=== PATIENT | female | born 1980 | race Caucasian/White ===

== ENCOUNTER 2019-04-30 10:00 | Inpatient (IN) | payer BC ==
[2019-04-20 14:24] VITALS: BMI 27.1
[2019-04-30] MEDS ORDERED: BUPIVACAINE LIPOSOME/PF (EXPAREL) 266 MG/20 ML VIAL ONE (11:35)
[2019-04-30] MEDS ORDERED: MIDAZOLAM HCL 2 MG/2 ML SINGLE DOSE VIAL ONE ×3 (11:35→15:23)
[2019-04-30] MEDS ORDERED: EPINEPHrine/PF 1 MG/1 ML (1:1,000) AMPULE ONE (11:59)
[2019-04-30] MEDS ORDERED: BUPIVACAINE HCL/PF 0.5% (5 MG/ML) 30 ML VIAL IJ ONE (11:59)
[2019-04-30] MEDS ORDERED: VANCOMYCIN 1,000 MG VIAL (RESTRICTED TO ID ONLY) ONE (12:10)
--- NOTE | 2019-04-30 12:29 | HP ---
Admitting History and Physical - Admission Chief Complaint: left hip pain History Source: Patient Limitations to Obtaining History: No Limitations - Past Medical History ...LMP: 04/04/19 ...: No - Smoking History Smoking history: Never smoked - Alcohol/Substance Use Hx Alcohol Use: No Home Medications - Allergies Allergies/Adverse Reactions: Allergies Allergy/AdvReac Type Severity Reaction Status Date / Time amoxicillin AdvReac Vomiting Verified 04/20/19 13:13 - Home Medications Home Medications: Ambulatory Orders NK [No Known Home Medication] 04/20/19 Review of Systems - Review of Systems Constitutional: reports: No Symptoms Eyes: reports: No Symptoms HENT: reports: No Symptoms Neck: reports: No Symptoms Cardiovascular: reports: No Symptoms Respiratory: reports: No Symptoms Gastrointestinal: reports: No Symptoms Genitourinary: reports: No Symptoms Musculoskeletal: reports: Joint Pain Integumentary: reports: No Symptoms Neurological: reports: No Symptoms Endocrine: reports: No Symptoms Psychiatric: reports: No Symptoms Physical Examination Vital Signs: Vital Signs Temperature 98.3 F 04/30/19 10:48 Pulse Rate 78 04/30/19 10:48 Respiratory Rate 18 04/30/19 10:48 Blood Pressure 111/78 04/30/19 10:48 O2 Sat by Pulse Oximetry (%) 100 04/30/19 10:48 Constitutional: Yes: Well Nourished, No Distress, Anxious Eyes: Yes: WNL HENT: Yes: WNL Neck: Yes: WNL Cardiovascular: Yes: WNL Respiratory: Yes: WNL Gastrointestinal: Yes: WNL Renal/: Yes: WNL Musculoskeletal: Yes: Joint Stiffness Extremities: Yes: WNL Edema: No Peripheral Pulses WNL: Yes Integumentary: Yes: WNL Neurological: Yes: WNL ...Motor Strength: WNL Psychiatric: Yes: WNL Assessment/Plan -39 yo lady with left hip pain. for OR today with Dr Hussain Savage. -NPO -Pt is medically cleared with moderate CV risk for OR -will follow post-op assessment and plan discussed with pt and family at bedside
[2019-04-30] MEDS ORDERED: TRANEXAMIC ACID 1000 MG/10 ML VIAL IVPUSH ONE (12:50)
[2019-04-30] MEDS ORDERED: VANCOMYCIN 1,000 MG in DEXTROSE 5%-WATER - 250 ML IVPB ONE (12:50)
[2019-04-30] MEDS ORDERED: CEFAZOLIN 1 GM/D5W 1 GRAM/50 ML BAG IVPB ONE (12:50)
[2019-04-30] MEDS ORDERED: DEXAMETHASONE SOD PHOSPHATE 4 MG/1 ML VIAL ONE (13:23)
[2019-04-30] MEDS ORDERED: ceFAZolin SODIUM 1 GM VIAL ONE ×2 (13:23→15:34)
[2019-04-30] MEDS ORDERED: ONDANSETRON 4 MG/2 ML VIAL ONE (13:23)
[2019-04-30] MEDS ORDERED: PROPOFOL 20 ML ONE ×4 (13:23→15:31)
[2019-04-30] MEDS ORDERED: SUCCINYLCHOLINE CHLORIDE 200 MG/10 ML VIAL ONE (13:24)
[2019-04-30] MEDS ORDERED: TRANEXAMIC ACID 1000 MG/10 ML VIAL ONE (13:24)
[2019-04-30] MEDS ORDERED: PHENYLEPHRINE HCL 10 MG/1 ML SINGLE DOSE VIAL ONE (13:50)
[2019-04-30] MEDS ORDERED: BENZOIN/ALOE VERA/STORAX/TOLU 58 ML BOTTLE ONE (15:50)
[2019-04-30] MEDS ORDERED: MAGNESIUM HYDROX 2400MG/30ML ORAL SUSPENSION 30 ML CUP PO PRN (16:02)
[2019-04-30] MEDS ORDERED: MAG HYDROX/AL HYDROX/SIMETH 30 ML UNIT-DOSE CUP PO PRN (16:02)
[2019-04-30] MEDS ORDERED: ONDANSETRON 4 MG/2 ML VIAL IVPUSH PRN ×2 (16:02→16:43)
[2019-04-30] MEDS ORDERED: LACTATED RINGERS SOLUTION 1,000 ML IV SCH (16:15)
[2019-04-30] MEDS ORDERED: PROMETHAZINE HCL 25 MG/1 ML VIAL IVPUSH PRN (16:43)
--- NOTE | 2019-04-30 16:53 | PN ---
Progress Note (short form) - Note Progress Note: 39F s/p LEFT total hip replacement POD #0. -Pain control: per anaesthesia team. -DVT PPx: -Chemical: ASA 81mg PO BID x 6 weeks. -Mechanical: ANGIE's, SCD's. -Incentive spirometry q15 min. -PT/OT/Rehab, OOB. -WBAT LLE. -Post-op Ancef x 2 doses. -f/u post-op TOV: 8 hours max. -f/u AM labs. -Diet as tolerated. -Care per medical hospitalist team. -Discharge planning: f/u [facility] [place] [facility] 05/06/2019; call for appointment . -Will follow. Hussain Savage MD (Orthopaedic Surgery).
--- NOTE | 2019-04-30 16:55 | OP ---
Operative Note - Note: Operative Date: 04/30/19 Pre-Operative Diagnosis: Congenital dysplasia left hip Operation: Left total hip replacement Implants: Lisette. Cup - Trident II-Tritanium, 50mm multi-hole. Poly - 32mm, neutral. Stem - Accolade II, #0, 127 deg NSA (high offset). Head - 32mm diamater, standard length Biolox/Delta Ceramic Post-Operative Diagnosis: Same as Pre-op Surgeon: Hussain Savage Offc Spec: Naren Savage Anesthesiologist/RN CARE TRANSITION: Rah Amezquita Anesthesia: Spinal Specimens Removed: Left femoral head Estimated Blood Loss (mls): 150 Fluid Volume Replaced (mls): 1,100 (Crystalloid)
[2019-04-30] MEDS: ACETAMINOPHEN 325 MG TABLET (FP) PO SCH ×2 (17:20→23:35)
[2019-04-30] MEDS ORDERED: oxyCODONE HCL 5 MG TABLET ONE (17:20)
[2019-04-30] MEDS ORDERED: ACETAMINOPHEN 325 MG TABLET (FP) ONE (17:20)
[2019-04-30] MEDS: oxyCODONE HCL 5 MG TABLET PO PRN ×2 (17:22→20:42)
[2019-04-30] MEDS: SENNOSIDES/DOCUSATE COMBO (SENNA PLUS) TABLET (UD) PO SCH (21:35)
[2019-04-30] MEDS: oxyCODONE HCL 10 MG SUSTAINED ACTING TABLET PO SCH (21:50)
[2019-04-30] MEDS: ASPIRIN 81 MG CHEWABLE TABLETS PO SCH (21:52)
[2019-04-30] MEDS ORDERED: ASPIRIN 325 MG TABLET PO SCH (22:00)
[2019-04-30] MEDS: CEFAZOLIN 1 GM/D5W 1 GM/50 ML BAG IVPB SCH (23:37)
[2019-05-01] MEDS: oxyCODONE HCL 5 MG TABLET PO PRN ×3 (01:48→21:35)
[2019-05-01] MEDS: ACETAMINOPHEN 325 MG TABLET (FP) PO SCH ×4 (06:27→23:50)
[2019-05-01] MEDS: CEFAZOLIN 1 GM/D5W 1 GM/50 ML BAG IVPB SCH (07:03)
[2019-05-01 08:40] LABS: CALCIUM 8.7 mg/dl (8.5-10); CREATININE 0.5 mg/dl (0.55-1.3); HEMATOCRIT 32.7 % (32.4-45.2); HEMOGLOBIN 10.8 GM/dl (10.7-15.3); MCH 29.4 pg (25.7-33.7); MEAN CELL VOLUME 89.2 fl (80-96); MEAN PLT VOLUME 9.4 fl (7.5-11.1); PLATELET COUNT 213 K/MM3 (134-434); POTASSIUM 3.7 mmol/L (3.5-5.1); RBC 3.67 M/mm3 (3.60-5.2); RDW 12.7 % (11.6-15.6); WHITE BLOOD COUNT 8.2 K/mm3 (4.0-10.8)
[2019-05-01] MEDS: ASPIRIN 81 MG CHEWABLE TABLETS PO SCH ×2 (10:51→21:35)
[2019-05-01] MEDS: PANTOPRAZOLE 40 MG TABLET (FP) PO SCH (10:51)
[2019-05-01] MEDS: oxyCODONE HCL 10 MG SUSTAINED ACTING TABLET PO SCH ×4 (10:51→21:35)
[2019-05-01] MEDS: SENNOSIDES/DOCUSATE COMBO (SENNA PLUS) TABLET (UD) PO SCH ×2 (10:52→21:34)
--- NOTE | 2019-05-01 12:19 | PN ---
Progress Note, Physician Chief Complaint: left hip tenderness - Current Medication List Current Medications: Active Medications Acetaminophen (Tylenol -) 650 mg PO Q6H [facility] Stop: 05/03/19 17:59 Last Admin: 05/01/19 11:34 Dose: 650 mg Al Hydroxide/Mg Hydroxide (Mylanta Oral Suspension -) 30 ml PO Q4H PRN PRN Reason: DYSPEPSIA Aspirin (Asa -) 81 mg PO BID [facility] Last Admin: 05/01/19 10:51 Dose: 81 mg Fentanyl (Sublimaze Injection -) 50 mcg IVPUSH Q5M PRN PRN Reason: PAIN-PACU ORDER X 4 DOSES ONLY Magnesium Hydroxide (Milk Of Magnesia -) 30 ml PO PRN PRN PRN Reason: CONSTIPATION Ondansetron HCl (Zofran Injection) 4 mg IVPUSH Q6H PRN PRN Reason: NAUSEA Ondansetron HCl (Zofran Injection) 4 mg IVPUSH Q6H PRN PRN Reason: NAUSEA AND/OR VOMITING Oxycodone HCl (Roxicodone -) 5 mg PO Q3H PRN PRN Reason: PAIN LEVEL 1-5 Last Admin: 04/30/19 17:22 Dose: 5 mg Oxycodone HCl (Roxicodone -) 10 mg PO Q3H PRN PRN Reason: PAIN LEVEL 6-10 Last Admin: 05/01/19 01:48 Dose: 10 mg Oxycodone HCl (Oxycontin -) 10 mg PO BID [facility] Stop: 05/03/19 16:43 Last Admin: 05/01/19 11:33 Dose: 10 mg Pantoprazole Sodium (Protonix -) 40 mg PO DAILY [facility] Last Admin: 05/01/19 10:51 Dose: 40 mg Promethazine HCl (Phenergan Injection -) 12.5 mg IVPUSH Q6H PRN PRN Reason: NAUSEA-FOR RESCUE AFTER 15 MIN Senna/Docusate Sodium (Pericolace -) 2 tablet PO BID [facility] Last Admin: 05/01/19 10:52 Dose: 2 tablet - Objective Vital Signs: Vital Signs Temperature 98.6 F 05/01/19 05:00 Pulse Rate 81 05/01/19 11:48 Respiratory Rate 17 05/01/19 11:48 Blood Pressure 111/63 05/01/19 11:48 O2 Sat by Pulse Oximetry (%) 100 05/01/19 10:00 Constitutional: Yes: Well Nourished, No Distress, Calm Eyes: Yes: WNL HENT: Yes: WNL Neck: Yes: WNL Cardiovascular: Yes: WNL Respiratory: Yes: WNL Gastrointestinal: Yes: WNL Genitourinary: Yes: WNL Musculoskeletal: Yes: Joint Stiffness Extremities: Yes: WNL Edema: No Peripheral Pulses WNL: Yes Integumentary: Yes: WNL Wound/Incision: Yes: Clean/Dry, Well Approximated, Dressing Dry and Intact Neurological: Yes: WNL ...Motor Strength: WNL Psychiatric: Yes: WNL Labs: CBC, BMP 05/01/19 07:35 05/01/19 07:35 Assessment/Plan -39 yo lady with left hip pain. S/P total left hip replacement POD #1. no complications. cont pain management. incentive spirometry. -fluids started for hypotension. responding well. pain meds may be contributing. pre-renal azotemia likely a factor as well. will monitor. -cont stool sofeteners for opiod induced constipation prevention. assessment and plan discussed with pt and family at bedside plan discussed with Dr Howard Savage hopefully will DC home tomorrow labs and meds reviewed. phone calls answered throughout the day. 40 min
[2019-05-02] MEDS: ACETAMINOPHEN 325 MG TABLET (FP) PO SCH ×3 (06:56→17:20)
[2019-05-02 09:21] LABS: HEMATOCRIT 31.6 % (32.4-45.2); HEMOGLOBIN 10.4 GM/dl (10.7-15.3); MCH 29.8 pg (25.7-33.7); MCHC 33.1 g/dl (32.0-36.0); MEAN CELL VOLUME 90.1 fl (80-96); MEAN PLT VOLUME 9.8 fl (7.5-11.1); PLATELET COUNT 180 K/MM3 (134-434); RBC 3.51 M/mm3 (3.60-5.2); RDW 12.7 % (11.6-15.6); WHITE BLOOD COUNT 7.7 K/mm3 (4.0-10.8)
[2019-05-02] MEDS: oxyCODONE HCL 10 MG SUSTAINED ACTING TABLET PO SCH ×2 (09:31→21:41)
[2019-05-02] MEDS: ASPIRIN 81 MG CHEWABLE TABLETS PO SCH ×2 (09:31→21:41)
[2019-05-02] MEDS: PANTOPRAZOLE 40 MG TABLET (FP) PO SCH (09:31)
[2019-05-02] MEDS: SENNOSIDES/DOCUSATE COMBO (SENNA PLUS) TABLET (UD) PO SCH ×2 (09:32→21:40)
--- NOTE | 2019-05-02 11:40 | PN ---
Progress Note, Physician Chief Complaint: left hip tenderness - Current Medication List Current Medications: Active Medications Acetaminophen (Tylenol -) 650 mg PO Q6H [facility] Stop: 05/03/19 17:59 Last Admin: 05/02/19 06:56 Dose: 650 mg Al Hydroxide/Mg Hydroxide (Mylanta Oral Suspension -) 30 ml PO Q4H PRN PRN Reason: DYSPEPSIA Aspirin (Asa -) 81 mg PO BID [facility] Last Admin: 05/02/19 09:31 Dose: 81 mg Fentanyl (Sublimaze Injection -) 50 mcg IVPUSH Q5M PRN PRN Reason: PAIN-PACU ORDER X 4 DOSES ONLY Sodium Chloride (Normal Saline -) 1,000 mls @ 100 mls/hr IV [facility] Magnesium Hydroxide (Milk Of Magnesia -) 30 ml PO PRN PRN PRN Reason: CONSTIPATION Ondansetron HCl (Zofran Injection) 4 mg IVPUSH Q6H PRN PRN Reason: NAUSEA Ondansetron HCl (Zofran Injection) 4 mg IVPUSH Q6H PRN PRN Reason: NAUSEA AND/OR VOMITING Oxycodone HCl (Roxicodone -) 5 mg PO Q3H PRN PRN Reason: PAIN LEVEL 1-5 Last Admin: 04/30/19 17:22 Dose: 5 mg Oxycodone HCl (Roxicodone -) 10 mg PO Q3H PRN PRN Reason: PAIN LEVEL 6-10 Last Admin: 05/01/19 21:35 Dose: 10 mg Oxycodone HCl (Oxycontin -) 10 mg PO BID [facility] Stop: 05/03/19 16:43 Last Admin: 05/02/19 09:31 Dose: 10 mg Pantoprazole Sodium (Protonix -) 40 mg PO DAILY [facility] Last Admin: 05/02/19 09:31 Dose: 40 mg Promethazine HCl (Phenergan Injection -) 12.5 mg IVPUSH Q6H PRN PRN Reason: NAUSEA-FOR RESCUE AFTER 15 MIN Senna/Docusate Sodium (Pericolace -) 2 tablet PO BID [facility] Last Admin: 05/02/19 09:32 Dose: 2 tablet - Objective Vital Signs: Vital Signs Temperature 98.6 F 05/02/19 06:00 Pulse Rate 90 05/02/19 06:00 Respiratory Rate 18 05/02/19 09:00 Blood Pressure 91/55 L 05/02/19 06:00 O2 Sat by Pulse Oximetry (%) 100 05/02/19 09:00 Constitutional: Yes: Well Nourished, No Distress Eyes: Yes: WNL HENT: Yes: WNL Neck: Yes: WNL Cardiovascular: Yes: WNL Respiratory: Yes: WNL Gastrointestinal: Yes: WNL Genitourinary: Yes: WNL Musculoskeletal: Yes: Joint Stiffness Extremities: Yes: WNL Peripheral Pulses WNL: Yes Integumentary: Yes: WNL Wound/Incision: Yes: Clean/Dry Neurological: Yes: WNL ...Motor Strength: WNL Psychiatric: Yes: WNL Labs: CBC, BMP 05/02/19 06:30 05/01/19 07:35 Assessment/Plan -39 yo lady with left hip pain. S/P total left hip replacement POD #2. no complications. cont pain management. incentive spirometry. -fluids started for hypotension. pain meds may be contributing. pre-renal azotemia likely a factor as well. IV fluids started. Pt says she was never told she has low BP. not ready to cut back on pain meds -cont stool sofeteners for opiod induced constipation prevention. assessment and plan discussed with pt and family at bedside hopefully will DC home tomorrow labs and meds reviewed. phone calls answered throughout the day. 40 min
[2019-05-02] MEDS ORDERED: SODIUM CHLORIDE 1,000 ML IV SCH (11:45)
[2019-05-03] MEDS: ACETAMINOPHEN 325 MG TABLET (FP) PO SCH ×2 (00:50→05:51)
[2019-05-03 02:07] VITALS: TEMP 99
[2019-05-03 06:48] VITALS: BP 112/62; PULSE 93
--- NOTE | 2019-05-03 08:53 | OP ---
Date of Operation: 04/30/2019 Surgeon: Hussain Savage M.D. [employer]: Naren Savage M.D., Darya Storm P.A.-C. Pre-Operative Diagnosis: 1. Developmental dysplasia left hip; 2. Osteoarthritis left hip. Post-Operative Diagnosis: 1. Developmental dysplasia left hip; 2. Osteoarthritis left hip. Surgical Procedure: Left total hip replacement via Direct Suprior approach. Findings: 1. Deficient anterior wall left acetabulum; 2. Deficient anterior column left pelvis. Anaesthesia: Spinal, block. Position: Right lateral decubitus. Incision: Direct superior. Estimated Blood Loss: 150cc. Intravenous Fluid: 1.1L crystalloid. Specimens: Right femoral head. Drains: None. Complications: None. Urine output: None. Bacteriology: None. Transfusions: None. Closure: #1 Vicryl, 3-0 Biosyn. Indications: The patient was indicated for a left total hip replacement in order to facilitate improved motion and mobilization, and to prevent the complications associated with a sedentary lifestyle. The patient was identified in the holding area by her armband. A long discussion was held with the patient (in the presence of the patients ) regarding the risks, benefits and alternatives of the above named procedure. Risks include but are not limited to: pain, bleeding, infection, damage to surrounding structures (including nerves, blood vessels, skin, ligaments, tendons and bone), wound complications, failure of hardware/implants/reduction, limb length discrepancy, need for further surgery, blood clots, myocardial infarction, pulmonary embolism, cerebrovascular insult, anaesthesia complications, compartment syndrome, limb loss, limp, loss of function, and . Benefits as mentioned above. Alternatives include no surgery. All questions were answered. The patient understood and agreed to the procedure. Informed consent was obtained, witnessed and verified. The patients correct operative limb - that is the left lower extremity - was marked, and the patient was taken to the operating room after being seen by the anesthesia and nursing staff. Procedure: The patient was brought into the operating room, placed on the OR table and secured with a safety strap. Consent and the operative site were again verified with the patient and nursing and anaesthesia staff. Anaesthesia, IV antibiotics, and TXA were then administered without complication. A time out was done, led by me the attending surgeon. A pre-operative orthpaedic exam revealed a leg length discrepancy with the left lower extremity being 1.5-2cm shorter than the right lower extremity. The patient was gently turned into the right lateral decubitus position. An axillary roll was placed. A Stulberg hip positioner with well-padded bolsters was used to secure the patient in the lateral decubitus position. The down arm was placed on a well-padded arm board. The up arm was brought across the patients body and placed on 2 pillows. Foam egg crates were placed under the down knee and ankle, and bony prominences were well padded. The operative site was then prepped and draped in the standard sterile fashion. Time out was again done and the case began. Operation: A standard Direct Superior surgical approach was utilized to access the hip joint. With a #10 blade, a skin incision was taken from the posterior-superior corner of the greater trochanter in a posterior-superior direction. This was approximately 10cm in length. Electrocautery was utilized to carry the deep dissection down to the level of the gluteus robin fascia. Hemostasis was assured using electrocautery (bipolar and unipolar). The gluteus robin fascia was incised, and the fibers of gluteus robin were in line with the trajectory of the incision. This confirmed the accuracy of our planned incision based on palpated landmarks and surface anatomy. A Carrizales elevator was used to split the distal fibers of gluteus robin, in line with the fibers, just proximal to their insertion into the iliotibial band. Great care was taken not to incise the iliotibial band. Gluteus robin fibers were split proximally using the Carrizales elevator until reaching the apex of the wound. Again, hemostasis was assured. The anselmo-capsular fat pad was exposed utilizing curved handle bar retractors. The anselmo-capsular fat pad was excised off the inferior border of the gluteus medius muscle belly, exposing the insertion of the hip short external rotator muscle group. The conjoined tendon - comprised of a confluence of the piriformis and obturator internus tendons - was identified and freed from adhesions to the capsule using a 90-degree clamp. This tendon was then released from its insertion using electrocautery. The tendon was tagged with a # 2 Fiberwire suture and tied to the inferior aspect of the proximal wound apex. The tendon, thus, served as a sling to retract and protect the sciatic nerve. With the conjoined tendon reflected away from its insertion, the hip joint capsule was visualized. Electrocautery was used to perform a capsulotomy and synovial joint fluid was aspirated. Next, the superior leaflet of the capsule was elevated using a Carriazles elevator to create separation from the underlying labrum and also to create a plane for later placement of a supra-acetabular retractor. The labrum was excised using electrocautery. The hip was then gently dislocated. A standard femoral neck cut was made using an oscillating saw. A Efraín pin was drilled into the femoral head and the femoral head was then removed. Anterior, inferior, and supra-acetabular retractors were placed to expose the acetabulum. The pulvinar was excised using electrocautery. It was immediately obvious that the anterior wall of the acetabulum was deficient, as was the anterior column of the pelvis itself. As expected, there was deficient superolateral acetabular coverage, consistent with hip dysplasia. Sharp basket reamers were used to prepare the acetabular bone bed. Healthy blushes of bleeding were observed from the reamed cancellous bone bed. Next, a size 50mm Lisette Trident II-Tritanium, multi-hole cup was impacted into position, achieving excellent press-fit. 2 acetabular screws were placed to provide supplemental fixation given the deficiency of host acetabular bone. A size 32mm neutral polyethylene liner was then impacted into the cup. Excellent placement of the polyethylene liner, and excellent press fit of the cup were confirmed. Next, attention was turned to femoral preparation. The anterior and supra-acetabular retractors were removed. The cut femoral neck was then exposed using the inferior acetabular retractor around the calcar, and a straight 90-degree retractor to retract gluteus medius. The box-cutter osteotome was used with a mallet to removed bone from the lateral femoral neck. An opening reamer was delivered by hand to find the femoral canal. A lateralizing reamer was used with power to lateralize the proximal entry into the canal, so as to avoid placing the stem into varus. The femoral bone bed was then prepared using broaches with gentle mallet strikes. The tibia was used as a goniometer with which to dial in approximately 5 degrees of stem anteversion. Trial components were assembled and the hip was reduced. The hip was taken through a full range of motion and proved stable throughout this range of motion , including at the extremes of positions of compromised. All trial femoral components were removed. Another 1g of IV Ancef was administered so that the bone bed would be rich with antibiotic at the time of seating of the femoral implant. A Lisette Accolade II (127-degree NSA, high offset) #0 stem was then implanted using gentle mallet strikes, diligently matching the prepared degree of stem anteversion. With the stem fully seated, a 32mm diameter, standard length ceramic/Biolox femoral head was then selected and implanted. The hip was once again reduced, and taken through a full range of motion. Stability was once again assured. Leg length was satisfactory and was longer than at baseline. Exact leg length difference was difficult to ascertain, as is a common challenge when performing a hip replacement with the patient in a lateral decubitus position. The wounds were copiously irrigated, as they had been regularly throughout the case so as to keep the retracted tissues wet, and in order to flush out wound debris. Due to baseline hip dysplasia and jehovah's witness of the hip center, it was impossible to repair the hip capsule. The tagged conjoined tendon was released and tied to the posterior-lateral corner of the greater trochanter. The remaining wounds were again irrigated. Hemostasis was assured and the wound was closed primarily using #1 Vicryl sutures. A 3-0 Biosyn suture was used to perform a subcuticular wound closure. A sterile, compressive dressing was applied. The sponge and needle counts were correct at the end of the case and the attending was present and scrubbed throughout the case. The patient was then transferred into a supine position and onto the hospital bed. A standard AP-pelvis x-ray was taken, demonstrating good overall alignment with a well reduced, congruent hip. There was no evidence of subsidence, loosening, or anselmo-prosthetic fracture. The true limb length was assessed and the left lower extremity was found to be approximately 1cm longer than the right lower extremity. The patient was then was then transferred to the recovery room without incident/ complications and in stable condition, having tolerated the procedure well. MD YUKI Carbone/[id number] MTDD
[2019-05-03] MEDS: SENNOSIDES/DOCUSATE COMBO (SENNA PLUS) TABLET (UD) PO SCH (11:00)
[2019-05-03] MEDS: ASPIRIN 81 MG CHEWABLE TABLETS PO SCH (11:00)
[2019-05-03] MEDS: PANTOPRAZOLE 40 MG TABLET (FP) PO SCH (11:00)
[2019-05-03] MEDS: oxyCODONE HCL 10 MG SUSTAINED ACTING TABLET PO SCH (11:00)
[2019-05-03] MEDS: oxyCODONE HCL 5 MG TABLET PO PRN (11:00)
--- NOTE | 2019-05-03 12:46 | PN ---
Progress Note (short form) - Note Progress Note: POD#3 Pt oob and ambulating with rolling walker. She has no complaints of dizzines with ambultionstanding. Tolerating a diet. Pain only with movement. Vital Signs Period Temp Pulse Resp BP Sys/[place] Pulse Ox Last 24 Hr 98.4 F-99.0 F 87-97 16-18 93-112/49-62 97-100 GEN: A&0x3, NAD Left hip with mild erythema. Dressing change and no drainage noted. Reapplied new jump start dressing with sterile technique/using sterile glove. CBC, BMP // 06:30 07//19 07:35 A/P: 39 yo female s/p RTHR, POD#3 Plan for discharge to home, d/w the with patient to monitor for fever/ progressive erythema to wound. D/w Dr Savage. Leave dressing inplace. No showers or Baths until seen in the office. Follow-up appointment scheduled for this Plan for home services with PT
--- NOTE | 2019-05-03 13:09 | DS ---
Physical Examination Vital Signs: Vital Signs Temperature 99.0 F 05/03/19 06:00 Pulse Rate 93 H 05/03/19 06:00 Respiratory Rate 16 05/03/19 06:00 Blood Pressure 112/62 05/03/19 06:00 O2 Sat by Pulse Oximetry (%) 97 05/03/19 06:00 Constitutional: Yes: Well Nourished, No Distress Eyes: Yes: WNL HENT: Yes: WNL Neck: Yes: WNL Cardiovascular: Yes: WNL Respiratory: Yes: WNL Gastrointestinal: Yes: WNL Renal/: Yes: WNL Musculoskeletal: Yes: Joint Stiffness Extremities: Yes: WNL Peripheral Pulses WNL: Yes Integumentary: Yes: WNL Wound/Incision: Yes: Clean/Dry, Well Approximated Neurological: Yes: WNL ...Motor Strength: WNL Psychiatric: Yes: WNL Labs: CBC, BMP 05/02/19 06:30 05/01/19 07:35 Discharge Summary Reason For Visit: LEFT HIP OSTEOARTHRITIS Condition: Good - Instructions Diet, Activity, Other Instructions: Dr. Savage Discharge Instructions for Hip Replacement Post Operative Instructions Physical activity Physical Therapist will come to your home for the first 5 days. You will be set up with outpatient PT at your first post-operative visit. Use assistive devices for ambulation at all times. Weight bearing as tolerated on your surgical side. Wound care Leave your surgical dressing in place. Do not change the dressing until seen by your surgeon in the office. No baths or showers. Do not submerge your incision. Do not apply any ointments or lotions to your incision. Please call the office if your dressing is soiled/dirty or is falling off. Apply Graduated Compression Stockings (TEDS) to both lower extremities-remove daily for hygiene ONLY. Diet There are no dietary restrictions. Eat healthy, high-fiber foods. Drink 6 to 8 glasses of liquid each day. This will assist in keeping your bowels are regular. Pain management Any pain prescription medication ordered should be taken as prescribed for moderate to severe pain. Do not take additional Tylenol while taking Percocet. Posterior Hip Precautions: Do not cross the leg you had surgery on over your other leg. (Do not cross your legs.)Use an elevated toilet seat. Do not sit on low chairs or beds. Take Aspirin 81 mg two times a day for a total of 6 weeks to prevent blood clots. Call Dr. Savage for any of the following: Severe pain not relieved by medication Fever of 101 or higher Excessive bleeding or drainage on dressing Inability to urinate If you experience chest pain or shortness of breath, please seek emergency care immediately. Please call the office at to confirm your post-op appointment for the week following surgery. Disposition: HOME - Home Medications Comprehensive Discharge Medication List: Ambulatory Orders Aspirin [ASA -] 81 mg PO BID #90 tab.chew 05/03/19 Docusate Sodium [Colace] 100 mg PO BID #30 capsule 05/03/19
--- NOTE | 2019-05-05 16:13 | PATH ---
Surgical Pathology Report Patient Name: JIMMIE SNELL Med. Rec. #: [id number] /Age/Gender: 1980 (Age: 39) / F Account: <[id number]> Location: [facility] MED-SURG Taken: 04/30/2019 Received: 04/30/2019 Reported: 05/05/2019 Physicians: Hussain Savage M.D. Specimen(s) Received LEFT FEMORAL HEAD Clinical History Left hip osteoarthritis Final Diagnosis FEMORAL HEAD, LEFT, TOTAL HIP REPLACEMENT: DEGENERATIVE JOINT DISEASE. Electronically Signed Shazia Kevin M.D. Gross Description Received in formalin, labeled "left femoral head," is a 4.0 x 4.0 x 3.2 cm. femoral head with a 1.0 cm in length portion of femoral neck attached. The margin of resection is smooth. No areas of eburnation are identified. The articular surface is johnson-yellow and focally granular and nodular. The underlying trabecular bone is yellow, hard and focally hemorrhagic. A architectural representative section is submitted in one cassette, following decalcification. /05/03/[address] [facility]05/03/2019
== END 2019-05-03 18:15 | disposition home health service (06) | DRG 470 ==
LOC: EDSTATUS 10:00 → FASUSAT 10:08 → UNDOADMOB 12:50 → FM/S 12:50 → INTOOBSV 12:50 → FM/S 12:50 → FASUSAT 12:50 → FM/S 14:26
PROVIDERS: ADMIT Orthopaedic Surgery Adult Reconstructive Orthopaedic Surgery; ATTEND Orthopaedic Surgery Adult Reconstructive Orthopaedic Surgery
PROC: 0SRB03A Replacement of Left Hip Joint with Ceramic Synthetic Substitute, Uncemented, Open Approach (ICD-10-PCS; principal; 2019-04-30 14:13)
DX: Q65.89 Other specified congenital deformities of hip (principal); I95.9 Hypotension, unspecified
CPT/HCPCS: 36415; 73502-TC-LT-FY; 80048; 84703; 85027; 88304-TC; 88311-TC; 94760; 97116-GP; 97161-GP; J7030